=== PATIENT | male | born 1980 | race Caucasian/White ===

== ENCOUNTER 2019-07-13 17:03 | Emergency (ER) | payer MEDICAID, OTHER ==
[~2019-07-13] VITALS: Ht 170.2 cm; Wt 78.0 kg
[2019-07-13] MEDS ORDERED: HYDROCODONE/ACETAMINOPHEN 5/325MG TABLET PO ONE (18:00)
[2019-07-13] MEDS ORDERED: TETANUS, DIPHTHERIA, PERTUSSIS VAC/PF 0.5ML (>7YR OLD) IM ONE (18:00)
[2019-07-13] MEDS ORDERED: LIDOCAINE HCL/PF 1% 10 MG/ML 5ML VIAL IJ ONE (18:00)
[2019-07-13] MEDS ORDERED: BACITRACIN ZINC OINT UDPKT TOP ONE (18:00)
[2019-07-13 20:48] VITALS: BP 130/82
== END 2019-07-13 20:49 | disposition home or self-care (01) ==
LOC: ER 17:03
DX: S01.01XA Laceration without foreign body of scalp, initial encounter (principal); S51.811A Laceration without foreign body of right forearm, initial encounter; W26.8XXA Contact with other sharp object(s), not elsewhere classified, initial encounter; Y93.89 Activity, other specified; Y92.89 Other specified places as the place of occurrence of the external cause; Y99.8 Other external cause status
CPT/HCPCS: 73090; 90471; 90715; 99283; J3490